=== PATIENT | female | born 1995 | race African-American/Black ===

== ENCOUNTER 2018-02-05 10:06 | Emergency (ER) | payer MEDICAID ==
[~2018-02-05] VITALS: Ht 160 cm; Wt 54.0 kg
[2018-02-05] MEDS ORDERED: SODIUM CHLORIDE 0.9% 1,000 ML IV ONE (10:52)
[2018-02-05] MEDS ORDERED: KETOROLAC 30MG/ML VIAL IV STA (10:52)
[2018-02-05] MEDS ORDERED: ONDANSETRON HCL 4MG/2ML INJ IV STA (10:52)
[2018-02-05 11:49] LABS: CLARITY URINE CLEAR (CLEAR); COLOR URINE YELLOW (YELLOW); KETONES URINE TRACE (NEGATIVE); LEUKOCYTE ESTERASE URINE NEGATIVE (NEGATIVE); NITRITE URINE NEGATIVE (NEGATIVE); OCCULT BLOOD URINE NEGATIVE (NEGATIVE); PROTEIN URINE NEGATIVE (NEGATIVE); SPECIFIC GRAVITY URINE 1.017 (1.005-1.030)
[2018-02-05 12:01] LABS: *AMPHETAMINES SCREEN URINE NEGATIVE (NEGATIVE); *BARBITURATES SCREEN URINE NEGATIVE (NEGATIVE)
[2018-02-05 12:02] LABS: *BENZODIAZEPINES SCREEN URINE NEGATIVE (NEGATIVE); *COCAINE SCREEN URINE NEGATIVE (NEGATIVE); METHADONE URINE SCREEN NEGATIVE (NEGATIVE); PHENCYCLIDINE URINE SCREEN NEGATIVE (NEGATIVE)
[2018-02-05 12:10] LABS: CANNABINOID URINE SCREEN PRESUMTIVE POSITIVE (NEGATIVE); OPIATES URINE SCREEN PRESUMTIVE POSITIVE (NEGATIVE)
[2018-02-05 12:31] LABS: HEMATOCRIT. 38.3 % (36.0-48.0); HEMOGLOBIN. 12.7 g/dL (12.0-16.0); MEAN CORPUSCULAR HEMOGLOBIN 29.1 pg (28.0-32.0); MEAN CORPUSCULAR VOLUME 87.8 fL (81.0-99.0); MEAN PLATELET VOLUME 7.4 fl (7.4-10.4); PLATELET 331 x1000/uL (130-400); RED BLOOD CELL COUNT 4.36 mill/uL (4.2-5.4); RED CELL DISTRIBUTION WIDTH 15.7 % (11.6-14.6)
[2018-02-05 12:38] LABS: CHLORIDE 107 mEq/L (98-107)
[2018-02-05 12:43] LABS: HCG SCREEN NEGATIVE
[2018-02-05 13:00] LABS: PLATELET ESTIMATE NORMAL
[2018-02-05 14:19] VITALS: BP 129/96
== END 2018-02-05 14:28 | disposition home or self-care (01) ==
LOC: ER 10:25
DX: R10.0 Acute abdomen (principal); R11.2 Nausea with vomiting, unspecified
CPT/HCPCS: 36415; 74176; 80053; 80305; 81003; 81025; 83690; 84703; 85025; 96361; 96374; 96375; 99285; J1885; J2405; J7030